=== PATIENT | female | born 1965 | race Caucasian/White ===

== ENCOUNTER 2016-05-07 13:42 | Emergency (ER) | payer OTHER, MEDICARE ==
[~2016-05-07] VITALS: Ht 167.6 cm; Wt 78.9 kg
[~2016-05-07 13:42] MED LIST: ALBUTEROL0.09 MG/A1 INH; BACTRIM DS 8001 TAB PO; BENZONATATE100 M1 PO; BENZTROPINE ME0.5 MG PO; CLEOCIN HCL300 MG PO; DEPAKOTE ER250 M1 PO; DIVALPROEX SOD500 M3 PO; DOXYCYCLINE HY100 M2 PO; FUROSEMIDE20 MG PO; GEODON40 MG PO; IBU600 MG PO; KEFLEX500 MG PO; LASIX20 M1 PO; LEVOXYL88 MCG PO; LITHIUM CARBON150 MG PO; LITHIUM CARBON300 M2 PO; MEDROL DOSEPAK1 PAC PO; MIRALAX17 G1 PO; MIRALAX17 GM PO; MYRBETRIQ25 M1 PO; NAPROXEN500 MG PO; NASONEX17 GM NASB; OXYBUTYNIN5 MG PO; PREDNISONE 20MG20 MG PO; PROPRANOLOL HCL10 M1 PO; PROPRANOLOL HY160 MG PO; PROTONIX40 M3 PO; PYRIDIUM100 MG PO; TESSALON PERLE100 MG PO; VIBRAMYCIN100 MG PO; ZIPRASIDONE HYD40 MG PO; ZITHROMAX Z-PA250 M1 PO; [UNRECOGNIZED DRUG - OTHER] PO
[2016-05-07] MEDS ORDERED: FLONASE ALLERG9.9 ML NAS (16:28)
[2016-05-07] MEDS ORDERED: TESSALON PERLE100 M1 PO (16:28)
--- NOTE | 2016-05-07 16:28 | ED GENERAL ADULT ---
History of Present Illness General Chief Complaint: General Adult Stated Complaint: CHEST COLD Source: patient Exam Limitations: no limitations Vital Signs & Intake/Output Vital Signs & Intake/Output Vital Signs Date Time Temp Pulse Resp B/P Pulse O2 O2 Flow FiO2 Ox Delivery Rate 05/07 1433 97.8 73 20 134/84 94 Room Air Allergies Coded Allergies: Penicillins (SICK TO STOMACH 10/02/15) buspirone (From BUSPAR) (GI UPSET, VOMITING 10/02/15) erythromycin base (HEART RACING, PALPITATIONS 10/02/15) imipramine (HEART RACING 10/02/15) lamotrigine (RASH ON BOTH ARMS 10/02/15) lithium (WITHDRAW, TREMORS, DROWSY, NAUSE, RACING THOUGHTS 10/02/15) paroxetine (VOMITING, NAUSEA 10/02/15) ranitidine (HEADACHES, NAUSEA, VOMITING 10/02/15) risperidone (RACING HEART BEAT 10/02/15) sertraline (CONSTANT HEADACHES, RACING THOUGHTS 10/02/15) Reconcile Medications Benztropine Mesylate 0.5 MG TAB 1 TAB PO DAILY MENTAL HEALTH (Reported) Divalproex Sodium (Divalproex Sodium ER) 250 MG TAB.ER.24H 1 TAB PO QAM MENTAL ILLNESS (Reported) Divalproex Sodium ER (Depakote ER 250MG Tab) 250 MG TAB.ER.24H 1,000 MG PO QHS MENTAL ILLNESS (Reported) Doxycycline Hyclate 100 MG CAPSULE 1 CAP PO BID URI Furosemide 20 MG TAB 1 TAB PO DAILY WATER PILL (Reported) Levothyroxine Sodium 0.088 MG TAB 1 TAB PO DAILY AC HYPOTHYROID (Reported) Mirabegron (Myrbetriq) 25 MG TAB.ER.24H 1 TAB PO DAILY BLADDER (Reported) Mometasone Furoate (Nasonex) 0.05 MG/Actuation SPR 1 SPRAY NASB PRN ALLERGIES (Reported) Pantoprazole Sodium (Protonix) 40 MG TABLET.DR 1 TAB PO QAM GERD (Reported) Polyethylene Glycol 3350 (Miralax) 17 GRAM/DOSE POWDER 17 GM PO PRN GI ( Reported) Propranolol Hydrochloride (Propranolol HCl) 10 MG TAB 1 TAB PO BID ANXIETY ( Reported) Ziprasidone Hydrochloride (Geodon 40MG Cap) 40 MG CAPSULE 1 CAP PO BID MENTAL HEALTH (Reported) Triage Note: C/O NASAL CONGESTION WITH COUGH X 1 MONTH. WITH SCRATCHY THROAT AND NASAL STUFFINESS. Triage Nurses Notes Reviewed? yes Onset: Gradual Duration: week(s): (4) Timing: recent history Injury Environment: home Severity: moderate Severity Numbers: 5 No Modifying Factors: none Associated Symptoms: cough HPI: Patient is a 50-year-old female presenting to the emergency department with chief complaint of dry cough and upper respiratory congestion that been going on for the past one month. She reports that she was using a nasal spray with little to no relief. Denies any fevers chills nausea vomiting chest pain or shortness of breath. She is still smoking every day. people she lives with her sick with similar symptoms. Past History Travel History Traveled to [place] past 21 day No Medical History Any Pertinent Medical History? 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 No Review of Systems Review of Systems Constitutional: Reports: no symptoms. Comments Review of systems: See HPI, All other systems negative. Constitutional, no chills fever or weight loss HEENT: No visual changes no sore throat no congestion Cardiovascular: No chest pain ,palpitation , orthopnea or ankle swelling Skin, no jaundice no rashes Respiratory: No dyspnea sputum or hemoptysis GI: No nausea no vomiting : No dysuria No hematuria Muscle skeletal: no back pain, no neck pain, Neurologic: No numbness no confusion Psych: No stress anxiety Immunology: No splenectomy or history of AIDS Physical Exam Physical Exam General Appearance: well developed/nourished, no apparent distress, alert, awake , comfortable Comments: Well-developed well-nourished person in no acute distress HEENT: Pupils equally round and reactive to light and accommodation. Nose is atraumatic. External auditory canal and Tympanic membranes clear. Pharynx normal. No swelling or edema. Slight dryness noted around nares. Clear nasal discharge bilaterally. No sinus tenderness to palpation over the maxillary and frontal sinuses. Neck: Supple, no lymphadenopathy, normal range of motion without pain or tenderness Cardiovascular: Regular rate and rhythms no murmurs rubs or gallops, normal JVP Respiratory: Chest nontender. No respiratory distress.breath sounds clear to auscultation bilaterally Extremity: No edema Neuro: Alert oriented x3 Skin: No appreciable rash on exposed skin, skin is warm and dry. Psych: Mood and affect is normal, memory and judgment is normal. Core Measures ACS in differential dx? No CVA/TIA Diagnosis: No Severe Sepsis Present: No Septic Shock Present: No Progress Differential Diagnoses I considered the following diagnoses in my evaluation of the patient: Upper respiratory infection, bronchitis, pneumonia, sinusitis Plan of Care: Patient is well-appearing in no acute distress. She was educated on smoking cessation. She will be started on Flonase, Tessalon Perles for symptoms. She' ll follow up with her primary care physician. Educated on using moisturizer to help with chapped skin. Initial ED EKG: none Departure Departure Time of Disposition: 1624 Disposition: HOME OR SELF CARE Condition: Stable Clinical Impression Primary Impression: Upper respiratory infection Qualifiers: URI type: unspecified URI Qualified Code: J06.9 - Acute upper respiratory infection, unspecified Referrals: BRUCE MCDERMOTT APRN (PCP/Family) Additional Instructions: Follow-up with her primary care physician calling appointment. Increase fluids. Use Flonase as prescribed. Take Tessalon Perles as prescribed for cough. Return for worsening symptoms or concerns. Quit smoking. Departure Forms: Customer Survey General Discharge Information Prescriptions: Current Visit Scripts Benzonatate (Tessalon Perle) 1 CAP PO TID PRN COUGH #21 CAP Fluticasone Propionate (Flonase Allergy Relief) 1 SPRAY KIRT BID PRN CONGESTION #1 INH Critical Care Note Critical Care Note Critical Care Time: non-applicable
[2016-05-07 16:56] VITALS: BP 136/88
== END 2016-05-07 16:57 ==
LOC: ERH 13:42
DX: J06.9 Acute upper respiratory infection, unspecified (principal)

== ENCOUNTER 2016-06-22 12:38 | Emergency (ER) | payer OTHER, MEDICARE ==
[~2016-06-22] VITALS: Ht 167.6 cm; Wt 78.9 kg
[~2016-06-22 12:38] MED LIST changes: +FLONASE ALLERG9.9 ML NAS; +TESSALON PERLE100 M1 PO
--- NOTE | 2016-06-22 13:25 | ED INFLUENZA/URI COMPLAINT ---
History of Present Illness General Chief Complaint: General Adult Stated Complaint: PT HAS A COLD FOR A FEW DAYS Source: patient Exam Limitations: no limitations Vital Signs & Intake/Output Vital Signs & Intake/Output Vital Signs Date Time Temp Pulse Resp B/P Pulse O2 O2 Flow FiO2 Ox Delivery Rate 06/22 1453 98.3 89 15 115/74 100 Room Air 06/22 1323 99 Room Air 06/22 1245 97.0 93 20 117/82 96 Room Air Allergies Coded Allergies: Penicillins (SICK TO STOMACH 10/02/15) buspirone (From BUSPAR) (GI UPSET, VOMITING 10/02/15) erythromycin base (HEART RACING, PALPITATIONS 10/02/15) imipramine (HEART RACING 10/02/15) lamotrigine (RASH ON BOTH ARMS 10/02/15) lithium (WITHDRAW, TREMORS, DROWSY, NAUSE, RACING THOUGHTS 10/02/15) paroxetine (VOMITING, NAUSEA 10/02/15) ranitidine (HEADACHES, NAUSEA, VOMITING 10/02/15) risperidone (RACING HEART BEAT 10/02/15) sertraline (CONSTANT HEADACHES, RACING THOUGHTS 10/02/15) Reconcile Medications Albuterol Sulfate (Proventil Hfa) 90 MCG HFA.AER.AD 2 PUF INH Q4 sob Benzonatate (Tessalon Perle) 100 MG CAPSULE 1 CAP PO TID PRN COUGH Benztropine Mesylate 0.5 MG TAB 1 TAB PO DAILY MENTAL HEALTH (Reported) Brompheniramine/Pseudoephed/Dm (Bromfed Dm Cough Syrup) 2 MG-30 MG-10 MG/5 ML SYRUP 5-10 ML PO Q4-6 PRN PRN cough Divalproex Sodium (Divalproex Sodium ER) 250 MG TAB.ER.24H 1 TAB PO QAM MENTAL ILLNESS (Reported) Divalproex Sodium ER (Depakote ER 250MG Tab) 250 MG TAB.ER.24H 1,000 MG PO QHS MENTAL ILLNESS (Reported) Doxycycline Hyclate 100 MG TABLET 1 TAB PO BID bronchitis Doxycycline Hyclate 100 MG CAPSULE 1 CAP PO BID URI Fluticasone Propionate (Flonase Allergy Relief) 50 MCG/ACTUATION SPRAY.SUSP 1 SPRAY KIRT BID PRN CONGESTION Furosemide 20 MG TAB 1 TAB PO DAILY WATER PILL (Reported) Levothyroxine Sodium 0.088 MG TAB 1 TAB PO DAILY AC HYPOTHYROID (Reported) Mirabegron (Myrbetriq) 25 MG TAB.ER.24H 1 TAB PO DAILY BLADDER (Reported) Mometasone Furoate (Nasonex) 0.05 MG/Actuation SPR 1 SPRAY NASB PRN ALLERGIES (Reported) Pantoprazole Sodium (Protonix) 40 MG TABLET.DR 1 TAB PO QAM GERD (Reported) Polyethylene Glycol 3350 (Miralax) 17 GRAM/DOSE POWDER 17 GM PO PRN GI ( Reported) Propranolol Hydrochloride (Propranolol HCl) 10 MG TAB 1 TAB PO BID ANXIETY ( Reported) Ziprasidone Hydrochloride (Geodon 40MG Cap) 40 MG CAPSULE 1 CAP PO BID MENTAL HEALTH (Reported) Triage Note: PT TO ED C/O URI S/S X A FEW DAYS. Triage Nurses Notes Reviewed? yes Onset: Abrupt Duration: week(s): (4), intermittent Timing: recent history No Modifying Factors: none HPI: 50 -year-old female comes into emergency room with complaints of cough runny nose and congestion. Patient also reports some mucus. Denies any fever. Denies any vomiting. Patient reports she was seen here prescribed medications and got better and then got worse again. Denies any pain. Denies any other associated symptoms. (SERVANDO RUDD) Past History Travel History Traveled to [place] past 21 day No Medical History Any Pertinent Medical History? 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 No (SERVANDO RUDD) Review of Systems Review of Systems Constitutional: Reports: no symptoms. EENTM: Reports: see HPI. Respiratory: Reports: see HPI. Cardiovascular: Reports: no symptoms. GI: Reports: no symptoms. Genitourinary: Reports: no symptoms. Musculoskeletal: Reports: no symptoms. Skin: Reports: no symptoms. Neurological/Psychological: Reports: no symptoms. Hematologic/Endocrine: Reports: no symptoms. Immunologic/Allergic: Reports: no symptoms. All Other Systems: Reviewed and Negative (SERVANDO RUDD) Physical Exam Physical Exam General Appearance: well developed/nourished, no apparent distress, alert, awake , anxious Head: atraumatic, normal appearance Eyes: Bilateral: normal appearance. Ears, Nose, Throat: normal ENT inspection, moist mucous membrane, hearing grossly normal Neck: normal inspection, full range of motion Respiratory: normal breath sounds, no respiratory distress Cardiovascular: regular rate/rhythm Back: normal inspection Extremities: normal inspection, normal range of motion Neurologic/Psych: awake, alert, oriented x 3, normal gait Skin: intact, normal color Core Measures Severe Sepsis Present: No Septic Shock Present: No (SERVANDO RUDD) Progress Differential Diagnosis: influenza, meningitis, neutropenia, otitis, pneumonia, pharyngitis, sinusitis, bronchitis Plan of Care: Orders Procedure Date/time Status XRY-CHEST XRAY, PA AND LATERAL 06/22 1324 Active Diagnostic Imaging: Viewed by Me: Radiology Read. Discussed w/RAD: Radiology Read. Radiology Impression: XAM TYPE: RAD - XRY-CHEST XRAY, PA AND LATERAL EXAMINATION : XR CHEST CLINICAL INFORMATION: Cough. COMPARISON: Chest radiography 2015. TECHNIQUE: 2 views of the chest were obtained. FINDINGS: No new significant abnormality is noted involving the heart, lungs, mediastinum, bony thorax or soft tissues. IMPRESSION: No acute pulmonary pathology. No significant interval change compared to prior radiography. DICTATED BY: ABEL KENNEDY MD Initial ED EKG: none Comments: 06/22/2016 2:54:13 PM Patient clinically looks well. Nontoxic-appearing. In no apparent distress. No evidence of pneumonia. Patient's symptoms go along with bronchitis. Patient counseled on stopping smoking. Take medications as prescribed. Follow-up with your primary care doctor. Return to emergency room if any concerns worsening symptoms. Patient reevaluated multiple times and continued to remain in no apparent distress. (SERVANDO RUDD) Departure Departure Disposition: HOME OR SELF CARE Condition: Stable Clinical Impression Primary Impression: Bronchitis Referrals: BRUCE MCDERMOTT APRN (PCP/Family) Additional Instructions: Take doxycycline, albuterol, and Bromfed as prescribed. Rest. Drink plenty fluids. Follow-up with your primary care doctor. You need to stop smoking. Please go over all results of today's visit with your primary care doctor. Contact your primary care doctor to let them know you were here in the emergency room. There may be nonspecific findings which may not be related to your visit today here in the emergency room but may require further evaluation and chronic monitoring by your primary care doctor. If you had a laceration today the chance of foreign body always remains. You should follow-up with your primary care doctor for recheck in 3-5 days for a wound check. If you had an x-ray done there is a chance that a fracture could have been missed on initial read and you should follow-up with your primary care doctor for repeat x-rays if symptoms persist. If your blood pressure was elevated here in the emergency room please have rechecked by her primary care doctor within the next 48 hours by your primary care doctor. If you were prescribed a narcotic here in the emergency room or any type of controlled substances you're not allowed to drive while taking this medication or operate any type of heavy machinery. Narcotics can make you feel lightheaded dizziness nausea and can cause constipation. You may need to pickler helper a stool softener. Thank you for choosing [facility] emergency room. Please return to the emergency room immediately if you have any other concerns worsening of symptoms. Departure Forms: Customer Survey General Discharge Information Prescriptions: Current Visit Scripts Doxycycline Hyclate 1 TAB PO BID #20 TAB Brompheniramine/Pseudoephed/Dm (Bromfed Dm Cough Syrup) 5-10 ML PO Q4-6 PRN PRN cough #120 ML Albuterol Sulfate (Proventil Hfa) 2 PUF INH Q4 #1 INHAL (SERVANDO RUDD) PA/HEAD ORTHOPEDIC TEAM PHYSICIAN Co-Sign Statement Statement: ED Attending supervision documentation- [] I saw and evaluated the patient. I have also reviewed all the pertinent lab results and diagnostic results. I agree with the findings and the plan of care as documented in the PA's/HEAD ORTHOPEDIC TEAM PHYSICIAN's documentation. x I have reviewed the ED Record and agree with the PA's/HEAD ORTHOPEDIC TEAM PHYSICIAN's documentation. [] Additions or exceptions (if any) to the PAs/HEAD ORTHOPEDIC TEAM PHYSICIAN's note and plan are summarized below: [] (JULIUS HARRY,VALERIE)
[2016-06-22] MEDS ORDERED: DOXYCYCLINE HY100 M4 PO (13:53)
[2016-06-22] MEDS ORDERED: PROVENTIL HFA6.7 GM INH (13:53)
[2016-06-22] MEDS ORDERED: BROMFED DM COU118 M1 PO (13:53)
--- NOTE | 2016-06-22 14:31 | RADIOLOGY REPORT ---
EXAMINATION: XR CHEST CLINICAL INFORMATION: Cough. COMPARISON: Chest radiography 05/02/2015. TECHNIQUE: 2 views of the chest were obtained. FINDINGS: No new significant abnormality is noted involving the heart, lungs, mediastinum, bony thorax or soft tissues. IMPRESSION: No acute pulmonary pathology. No significant interval change compared to prior radiography.
[2016-06-22 14:53] VITALS: BP 115/74
== END 2016-06-22 14:54 ==
LOC: ERH 12:38
DX: J40 Bronchitis, not specified as acute or chronic (principal); Z87.891 Personal history of nicotine dependence

== ENCOUNTER 2016-07-29 11:17 | Inpatient (IN) | payer OTHER, MEDICARE ==
[~2016-07-29] VITALS: Ht 167.6 cm; Wt 78.9 kg
[~2016-07-29 11:17] MED LIST changes: +BROMFED DM COU118 M1 PO; +DOXYCYCLINE HY100 M4 PO; +PROVENTIL HFA6.7 GM INH
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
--- NOTE | 2016-07-29 12:08 | NUR ---
PT AMBULATORY TO ROOM # 20, CALM AND COOPERATIVE, SECURITY CALLED FOR WANDING. MOTHER REMAINS AT BEDSIDE AND WILL TAKE VALUABLES.
--- NOTE | 2016-07-29 12:10 | NUR ---
STUDENT PA IN TO EVAL.
--- NOTE | 2016-07-29 12:19 | NUR ---
SECURITY IN FOR WANDING, PT CHANGED TO HOSP SCRUBS.
--- NOTE | 2016-07-29 12:25 | NUR ---
2 CLOTHING BAGS TO CLOSET BY SECURITY, VALUABLES GIVEN TO MOTHER.
--- NOTE | 2016-07-29 12:38 | NUR ---
EKG AND BLOODWORK SENT TO LAB BY JORGE [facility]. PT REMAINS AWAKE, ALERT, ORIENTED, COOPERATIVE, TALKATIVE.
[2016-07-29 12:40] LABS: ABSOLUTE BASOPHIL COUNT 0 /CUMM (0.0-0.2); ABSOLUTE EOSINOPHIL COUNT 0.1 /CUMM (0.0-0.7); ABSOLUTE GRANULOCYTE CT 4.9 /CUMM (1.4-6.5); ABSOLUTE LYMPH COUNT 1.9 /CUMM (1.2-3.4); ABSOLUTE MONOCYTE COUNT 0.9 /CUMM (0.10-0.60); BASOPHIL % 0.1 % (0.0-2.0); EOSINOPHIL % 1.2 % (0-5); GRANULOCYTE % 62.5 % (42.2-75.2); HEMATOCRIT 39.7 % (37-47); MEAN CORPUSCULAR HGB 33.8 PG (27.0-31.0); MEAN CORPUSCULAR HGB CONC 35.1 G/DL (33.0-37.0); MEAN CORPUSCULAR VOLUME 96.2 FL (81.0-99.0); MEAN PLATELET VOLUME 8.1 FL (7.4-10.4); PLATELET COUNT 249 /CUMM (130-400); RBC DISTRIBUTION WIDTH 13.9 % (11.5-14.5); RED BLOOD CELL CT 4.13 /CUMM (4.20-5.40); WHITE BLOOD CELL COUNT 7.8 /CUMM (4.8-10.8)
--- NOTE | 2016-07-29 13:00 | NUR ---
PT AWARE OF NEED FOR URINE SPECIMEN WHEN ABLE TO PROVIDE, URINE CUP AT BEDSIDE. MOTHER REMAINS AT BEDSIDE.
--- NOTE | 2016-07-29 14:24 | NUR ---
PT SLEEPING COMFORTABLY AT THIS TIME. MOTHER REMAINS AT BEDSIDE.
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
--- NOTE | 2016-07-29 15:13 | NUR ---
PT SITTING UP HAVING LUNCH TRAY AT THIS TIME.
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
--- NOTE | 2016-07-29 16:20 | NUR ---
CRISIS AT BEDSIDE FOR EVAL. MOTHER REMAINS AT BEDSIDE.
--- NOTE | 2016-07-29 16:26 | NUR ---
PA AT BEDSIDE TO DISCUSS PLAN OF CARE.
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
--- NOTE | 2016-07-29 16:35 | NUR ---
PER CRISIS PLAN FOR ADMIT TO CPS.
--- NOTE | 2016-07-29 17:23 | NUR ---
PT MORE TALKATIVE THIS AFTERNOON, TALKING ALMOST NON-STOP TO MOTHER ABOUT MULTIPLE PEOPLE AND THINGS THAT HAVE HAPPENED IN THE PAST. RESTING MORE QUIETLY NAPPING AT THIS TIME. MOTHER REMAINS AT BEDSIDE.
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
--- NOTE | 2016-07-29 17:45 | NUR ---
PT CONTINUES TO SLEEP COMFORTABLY AT THIS TIME, MOTHER REMAINS AT BEDSIDE.
--- NOTE | 2016-07-29 17:49 | NUR ---
SUPPER GIVEN, GRILLED CHEESE, SOUP,JUICE, MILK.
[2016-07-29] MEDS ORDERED: PROAIR HFA8.5 GM INH (18:20)
--- NOTE | 2016-07-29 18:48 | NUR ---
ATTEMPT TO GIVE [facility] REPORT, UNABLE TO TAKE AT THIS TIME.
--- NOTE | 2016-07-29 18:51 | NUR ---
PT AWAKE, ALERT, REMAINS TALKATIVE WITH MOTHER AT THIS TIME. PT UPDATED WITH PLAN OF CARE.
--- NOTE | 2016-07-29 19:17 | NUR ---
ASSUMED CARE OF PT. RACK WASHER IN TALKING TO PT AND PT MOTHER.
--- NOTE | 2016-07-29 20:16 | NUR ---
PER CRISIS [facility] NOT TAKING NURSING REPORT AT THIS TIME.
--- NOTE | 2016-07-29 20:58 | NUR ---
PT ON PHONE IN ROOM WITH MOTHER AT THIS TIME. RESTING COMFORTABLY ON STRETCHER. AWAITING GIVING REPORT TO [facility] AT THIS TIME.
--- NOTE | 2016-07-29 21:05 | NUR ---
REPORT GIVEN TO KAREL SARMIENTO
[2016-07-29 21:32] VITALS: BP 145/81
--- NOTE | 2016-07-29 23:15 | NUR ---
PT ADMITTED TO [facility] DUE TO DECOMPENSATION IN MENTAL STATUS. PT DIAGNOSED WITH BIPOLAR D/O AND HAS BEEN EXHIBITING AN INCREASE IN MOOD LABILITY AND SYMPTOMS OF PSYCHOSIS. PT ADMITTED TO PARANOID THOUGHTS AND NON COMMAND TYPE AH. SHE DENIED SI PAST OR PRESENT, VH, AND HI. PT A&O TO PERSON, PLACE, AND SITUATION. HOWEVER, DISORIENTED TO TIME OF DAY. PT REPORTED FEELING DEPRESSED AND ANXIOUS WITH RACING THOUGHTS. SHE WAS TANGENTIAL/HYPERVERBAL DURING INTERVIEW WITH A FOCUS ON NEGATIVE PAST EXPEREINCES. BEHAVIOR PLEASANT AND COOPERATIVE.
[2016-07-30 07:56] VITALS: BP 142/93
--- NOTE | 2016-07-30 10:03 | History & Physical ---
General Information and HPI MD Statement: I have seen and personally examined NATHEN BERNAL and documented this H&P. The patient is a 50 year old F who presented with a patient stated chief complaint of hellen Source of Information: patient Exam Limitations: no limitations History of Present Illness: 58-year-old female with past medical history significant for bipolar disease, hypothyroidism, GERD, bladder incontinence who was admitted to Inpatient Psychiatry secondary to having a manic episode. Patient was talking excessively. She smokes and was slumped over a garbage can with a significant amount. She had also noted that stools on the gas on. When she came in she made the statement that it's a miracle that we are alive. Patient thinks that her Depakote is getting shakes. She thinks that she is not to large dose of Depakote. She currently denies any drinking alcohol or any drug use but she is a current smoker. She smokes about a pack of cigarettes a day. At this point she does complain of some right upper quadrant pain. She does complain of some urinary burning. She has a history of urinary incontinence and she takes Mybetriq. She denies any nausea, vomiting, chest pain, and dizziness. She denies any coughing, shortness of breath, fevers or chills. Allergies/Medications Allergies: Coded Allergies: Penicillins (SICK TO STOMACH 10/02/15) buspirone (From BUSPAR) (GI UPSET, VOMITING 10/02/15) erythromycin base (HEART RACING, PALPITATIONS 10/02/15) imipramine (HEART RACING 10/02/15) lamotrigine (RASH ON BOTH ARMS 10/02/15) lithium (WITHDRAW, TREMORS, DROWSY, NAUSE, RACING THOUGHTS 10/02/15) paroxetine (VOMITING, NAUSEA 10/02/15) ranitidine (HEADACHES, NAUSEA, VOMITING 10/02/15) risperidone (RACING HEART BEAT 10/02/15) sertraline (CONSTANT HEADACHES, RACING THOUGHTS 10/02/15) Home Med list Divalproex Sodium (Divalproex Sodium ER) 500 MG TAB.ER.24H 500 MG PO QAM MENTAL HEALTH (Reported) Divalproex Sodium (Depakote ER) 250 MG TAB.ER.24H 750 MG PO QPM MENTAL HEALTH (Reported) Levothyroxine Sodium (Levoxyl) 88 MCG TABLET 1 TAB PO DAILY AC THYROID ( Reported) Mirabegron (Myrbetriq) 25 MG TAB.ER.24H 25 MG PO DAILY BLADDER (Reported) Mometasone Furoate (Nasonex) 50 MCG SPRAY.PUMP 1 SPRAY NASB PRN ALLERGIES ( Reported) Pantoprazole Sodium (Protonix) 40 MG TABLET.DR 1 TAB PO QAM GI (Reported) Polyethylene Glycol 3350 (Miralax) 17 GRAM POWD.PACK 1 PAC PO PRN GI ( Reported) dissolve in water Propranolol HCl 10 MG TABLET 1 TAB PO BID ANXIETY (Reported) Ziprasidone HCl (Geodon) 40 MG CAPSULE 1 CAP PO BID MENTAL HEALTH (Reported) Past History Travel History Traveled to [place] past 21 day No Medical History Neurological: NONE EENT: allergies Cardiovascular: NONE Respiratory: COPD Gastrointestinal: constipation, diverticulitis, hiatal hernia, BOWEL INCONTINENCE Hepatic: NONE Renal: HX BLADDER INCONTINENCE OVERACTIVE BLADDER Musculoskeletal: osteoarthritis Psychiatric: anxiety, bipolar disease, depression, MOOD SWINGS Endocrine: hypothyroidism Blood Disorders: anemia Cancer(s): NONE DELI 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 Home Services at Home: None Primary Language: Polish Functional Ability ADLs Independent: dressing, eating, toileting, bathing. Ambulation: independent IADLs Independent: shopping, housework, finances, food prep, telephone, transportation , medication admin. Employment History Employment Disability Review of Systems Review of Systems Constitutional: Reports: see HPI. EENTM: Reports: see HPI. Cardiovascular: Reports: see HPI. Respiratory: Reports: see HPI. GI: Reports: see HPI. Genitourinary: Reports: see HPI. Musculoskeletal: Reports: see HPI. Skin: Reports: see HPI. Neurological/Psychological: Reports: see HPI. Exam & Diagnostic Data Last 24 Hrs of Vital Signs/I&O Vital Signs Date Time Temp Pulse Resp B/P B/P Pulse O2 O2 Flow FiO2 Mean Ox Delivery Rate 07/30 0839 96.8 77 20 142/93 07/30 0756 96.8 77 142/93 07/29 2235 79 145/81 07/29 2132 96.7 79 145/81 07/29 1931 97.8 78 20 148/93 97 Room Air 07/29 1534 78 19 119/72 98 Room Air 07/29 1130 98.0 84 16 150/91 95 Room Air Intake & Output 07/30 1600 07/30 0800 07/30 0000 Intake Total Output Total Balance Patient 174 lb Weight Physical Exam General Appearance Alert, Oriented X3, Cooperative, No Acute Distress, talking too much Skin No Rashes HEENT PERRLA Neck Supple Cardiovascular Regular Rate, Normal S1, Normal S2 Lungs Clear to Auscultation Abdomen Normal Bowel Sounds, Soft, + TENDERNESS IN RUQ. Neurological Cranial Nerves II through XII: INTACT Extremities No Edema Last 24 Hrs of Labs/Samir: Laboratory Tests 07/30/16 0622: Anion Gap 10 07/29/16 1756: Urine Test Cancelled 07/29/16 1753: Urine Test Cancelled 07/29/16 1444: Urine Opiates Screen < 100.00, Methadone Screen < 40, Barbiturate Screen < 60, Ur Phencyclidine Scrn < 6.00, Amphetamines Screen < 100, U Benzodiazepines Scrn < 85, Urine Cocaine Screen < 50, Urine Cannabis Screen < 5.00, Urine Test NEGATIVE 07/29/16 1234: Hemoglobin A1c Pending 07/29/16 1234: Anion Gap 8, Estimated GFR > 60, BUN/Creatinine Ratio 10.0, Glucose 75, Calcium 9.5, Total Bilirubin 0.4, AST 18, ALT 34, Alkaline Phosphatase 60, Troponin I < 0.01, Total Protein 6.5, Albumin 3.9, Globulin 2.6, Albumin/Globulin Ratio 1.5, TSH &T3 &Free T4 Intrp 2.880, Valproic Acid 85.3, Serum Alcohol < 10.0 07/29/16 1234: Sodium Cancelled, Potassium Cancelled, Chloride Cancelled, Carbon Dioxide Cancelled, Anion Gap Cancelled, BUN Cancelled, Creatinine Cancelled, BUN/ Creatinine Ratio Cancelled, Glucose Cancelled, Calcium Cancelled, Total Bilirubin Cancelled, AST Cancelled, ALT Cancelled, Alkaline Phosphatase Cancelled, Troponin I Cancelled, Total Protein Cancelled, Albumin Cancelled, Globulin Cancelled, Albumin/Globulin Ratio Cancelled, CBC w Diff NO MAN DIFF REQ , RBC 4.13 L, MCV 96.2, MCH 33.8 H, RDW 13.9, MPV 8.1, Gran % 62.5, Lymphocytes % 24.9, Monocytes % 11.3 H, Eosinophils % 1.2, Basophils % 0.1, Absolute Granulocytes 4.9, Absolute Lymphocytes 1.9, Absolute Monocytes 0.9 H, Absolute Eosinophils 0.1, Absolute Basophils 0, PUBS MCHC 35.1, Serum Alcohol Cancelled Microbiology 07/30 0934 URINE ROUT: Urine Culture - ORD Assessment/Plan Assessment: 58-year-old female with past medical history significant for bipolar disorder, hypothyroidism, GERD and urinary incontinence who is admitted today that bipolar 1 disorder with hellen and psychotic features. She also has right upper quadrant pain and tenderness as well as urinary burning complaint. She is slightly hyperkalemic. Hypothyroidism, her TSH is normal. I will continue her on her home dose of Synthroid. She should be continued on her B check for urinary incontinence. I continued the PPI for her GERD. She is complaining of some urinary burning, I did order a urinalysis and urine culture. She is also complaining of right upper quadrant pain and she's tender on palpation. Will check right upper quadrant ultrasound. For psych issues, I will defer the treatment plan to psychiatrist. I will recheck her labs in am. As Ranked By This Provider Problem List: 1. Bipolar disorder 2. Hypothyroid 3. GERD (gastroesophageal reflux disease) 4. Urinary incontinence Miscellaneous Miscellaneous Documentation Attending Case Discussed With: Kristen Henry MD. Primary Care Physician: BRUCE MCDERMOTT APRN Patient sees these Specialists Psychiatry Level of Patient Care: [facility]
[2016-07-30 12:23] VITALS: BP 122/92
--- NOTE | 2016-07-30 13:09 | NUR ---
PT IS OUT IN THE COMMUNITY INTERACTING WITH STAFF AND PEERS AT TIMES. PT SPEECH IS HYPERVERBAL AND DISORANZIED AT TIMES. PT TENDS TO TALK ABOUT THINGS THAT WERE NOT ASKED DIRECTLY OF HER. PT MOOD IS STABLE WTIH A CONSTRICTED AFFECT. PT IS ATTENDING GROUPS. PT DENIES SI THOUGHTS.
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
[2016-07-30 15:52] VITALS: BP 136/92
--- NOTE | 2016-07-30 16:06 | SOCIAL WORKER TX PLAN PSYCH ---
Treatment Plan - Please Document: - Evidence that there is ongoing collaboration between - the patient and the interdisciplinary team, - including the patient's active participation and - responsibility for engaging in the treatment regimen, - and that the treatment plan is individualized and - relevant to the patient's conditions. - Treatment plan should reflect documentation indicating - that all active therapeutic efforts are included. Strengths/Capabilities: Pt is able to articulate her wants and needs. Pt is connected to treatment. Pt has been sober from drug and alcohol use for years. Physical Limitations (Interventions): None identified. DSM5/PS Stressors/Medical Prob Diagnosis' (DSM 5, Stressors, Medical): Bipolar 1 with hellen and psychotic features F F31.2 PTSD Chronic F43.12 Current GAF: 27 Treatment Team - Responsibilities of members of the treatment team include: - Medication Management- MD or RN CAMP - Medication Administration and Monitoring- Nurse - Group Therapy- Occupational Therapist - 1:1 Therapy,Disch Planning,family involvement-Smoking Tobacco Packing Machine Hand
--- NOTE | 2016-07-30 16:06 | SOCIAL WORKER PROG NOTE PSYCH ---
Social Work Progress Note Progress Note Eliana from [facility] left a message asking to come and see Kasie today as well as speak with me at some point regarding concerns over Kasie's living arrangement and concerns from Kasie's son Chandu. Kasie was agreeable to sign a release for [facility]. I called Eliana but needed to leave a message. Eliana left me another message later in the day, stating she visited with Kasie for awhile on the unit. I happened to be in a family meeting at that time. She again reiterated that she would like to set up a meeting next week with Kasie's son Chandu. She is thinking that respite may be a good option for Kasie right now. Kasie had an ultrasound of her abdominal area today. She is complaining of constipation and pain. She is scared of what they may tell her. She is hyperverbal today, rambling on from topic to topic. We didn't get to spend alot of time together and her Mom came to visit her at 4pm when we were talking. I told Kasie we will set up a family meeting and or meeting with Eliana for next week and that we will talk more on Tuesday.
--- NOTE | 2016-07-30 16:57 | ULTRASOUND REPORT ---
EXAMINATION: US ABDOMEN LIMITED CLINICAL INFORMATION: Right upper quadrant abdominal pain.. COMPARISON: None TECHNIQUE: Real-time imaging of the right upper quadrant abdominal viscera. FINDINGS: PANCREAS: The tail of the pancreas is not visualized. The remainder of the pancreas appear unremarkable. LIVER: Mild diffuse heterogeneous abnormal increased echotexture is present consistent with mild diffuse hepatocellular disease or fatty infiltration. No superimposed discrete focal abnormalities present. GALLBLADDER: The gallbladder is contracted, accordingly suboptimally evaluated. No gross abnormality is seen. COMMON BILE DUCT: Normal in caliber measuring 0.3 cm in diameter. RIGHT KIDNEY: Normal. No hydronephrosis. No renal calculi or focal parenchymal lesions. The kidney measures 10.1 cm in maximum dimension. FREE FLUID: None. IMPRESSION: 1. The gallbladder is contracted, suboptimally evaluated. 2. Mild diffuse heterogeneous abnormal increased echotexture throughout the liver, consistent with diffuse liver disease likely secondary to diffuse hepatocellular disease or fatty infiltration.
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
[2016-07-30 20:19] VITALS: BP 129/81
--- NOTE | 2016-07-30 21:29 | NUR ---
PT IS HYPERVERBAL AND EXPRESSES THOUGHTS TO STAFF AND TO OTHER PTS. CAN SOMETIMES BE ANNOYING AND INTRUSIVE. OVERALL COMPLIANT AND NO BIG ISSUES. PT DENIES ANY THOUGHTS OF SI AT THIS TIME.
[2016-07-31 07:58] VITALS: BP 124/84
--- NOTE | 2016-07-31 12:04 | NUR ---
PT IS MONITORED ON ONE TO ONE STATUS. SHE HAS BEEN HYPERVERBAL BUT ABLE TO BE REDIRECTED AND SHE HAS NOT BEEN INAPPROPRIATE IN HER CONVERSATION OR BEHAVIOR. WHEN ASKED SHE DENIED ANY SUICIDAL THOUGHTS OF THOUGHTS OF SELF HARM. SHE IS COMPLIANT WITH HER MED REGIME.
[2016-07-31 12:24] VITALS: BP 165/94
--- NOTE | 2016-07-31 12:51 | CP SOUTH PROGRESS NOTE PSYCH ---
Psych (Inpt) Progress Note Progress Note Include the following elements, when applicable: Involvement in the active treatment of the patient with behavioral observations of the patient and the patient's response to the treatment. Review of the ongoing treatment process in the context of the treatment plan. Indication of how multi-disciplinary staff members are carrying out the treatment plan. Plans for future interventions and recommendations for revision of the treatment plan. Liaison with other physicians/providers. Progress Note: Pressured speech, difficult to interrupt at times, but pleasant. Asking me if I am someone elses sister, then went on in disorganized tangent about I keep doing good but watch out for danger, bad dreams keep haunting me, someone is going to strike me in the wrong place at the wrong time Discussed her past relapses, stating that she was smoking 3 packs a day, I felt like I was going under, I was supposed to be on 1500mg of depakote) stated that she felt safe here, agreeable to increase her depakote dosing. MSE: older woman, fair hygiene and grooming. Appropriate eye contact. Psychomotor agitation. Affect full, euphoric overall and overall reactive, mood euphotic. Speech pressured. Thought content positive disorganized, odd statements, global paranoia. Thought process off topic, derailed. Denied voices initially then started talking about the voices as nightmares. No command hallucinations. Denied thoughts to harm herself/others. Absent insight to her current circumstances. Judgment fair. Cognition impaired by her active psychotic./manic sx. A: 50 y/o woman w/ active manic and psychotic sx, hx bipolar d/o, disorganized, off topic. Had been pressured w/ sexually preoccupied speech, grandiose earlier this week. Less labile today compared to previous notes. Risk: Hx significant psychiatric sx, significant medical problems (obesity) which elevate his chronic risk of harm to self/others. Recent suicidal thoughts, depression as more acute risk factors; but overall acute risk of violence to self/others is low b/c stabilizing, denies SI; participating in tx. P: Target risk factors/active sx (manic sx) w/ medication, education, milieu therapy; groups. Encouraged group attendance. Increase VPA to 500mg qam and 1000mg qpm She has been doing better overall, will try taking her off of 1:1, she has been amenable to redirection by staff.
[2016-07-31 16:24] VITALS: BP 144/90
[2016-07-31 19:42] VITALS: BP 131/77
--- NOTE | 2016-07-31 20:52 | NUR ---
PT IS COOPERATIVE WITH STAFF AND PEERS, AND COMPLINAT WITH UNIT RULES. OFTEN INTERACTING WITH OTHERS, AND STAYING IN [place]. MOOD IS STABLE, AFFECT IS BRIGH, COMMUNICATION IS HYPERVERBAL, TANGENTIAL, SLIGHTLY LOUD AND PRESSURED, APPETITE IS NORMAL. PT DENIES SI AT THIS TIME.
--- NOTE | 2016-08-01 05:23 | NUR ---
PT NO LONGER ON 1:1. PT TALKING TO SELF NON STOP ON EVENINGS. PT DID TAKE MEDS. PT DID SLEEP.
[2016-08-01 07:41] VITALS: BP 123/76
--- NOTE | 2016-08-01 11:51 | NUR ---
PT HAS BEEN CALM AND COOPERATIVE THROUGHOUT THIS SHIFT. SHE IS HYPERVERBAL AND TANGENTIAL BUT ABLE TO BE REDIRECTED. WHEN ASKED SHE DENIED ANY SUICIDAL THOUGHTS OR THOUGHTS OF SELF HARM. SHE IS TAKING HER MEDS AND GOING TO GROUPS
[2016-08-01 12:01] VITALS: BP 132/78
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
[2016-08-01 15:57] VITALS: BP 135/91
--- NOTE | 2016-08-01 16:46 | NUR ---
Pt is A&O X 3, compliant with medication and group therapies. Pt continues with her compulsive talking that is most often intolerable and a source of aggravation to other peers necessitating some form of social distancing/ isolation by other patients. vital sign is stable, report good night sleep and appetite. mood is stable with full range affect, denies any AH/VH, thought of self-harm and to someone else.
[2016-08-01 19:58] VITALS: BP 147/86
--- NOTE | 2016-08-01 20:50 | NUR ---
PT IS COOPERATIVE WITH STAFF AND PEERS, AND COMPLIANT WITH UNIT RULES. OFTEN IN MILIEU, INTERACTING WITH OTHERS. MOOD IS STABLE, AFFECT IS BRIGHT, COMMUNICATION IS HYPERVERBAL, SOMETIMES LOUD AND PRESSURED, AT TIMES DISCUSSES TOPICS THAT ARE NOT APPROPRIATE FOR THE UNIT, BUT IS EASILY RE-DIRECTED, AND APPETITE IS NORMAL. PT DENIES SI AT THIS TIME.
--- NOTE | 2016-08-02 06:54 | NUR ---
PT CALMER. PT SLEPT THRU THE NIGHT. LABS IN AM.
[2016-08-02 08:13] VITALS: BP 110/77
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
--- NOTE | 2016-08-02 10:46 | CP SOUTH PROGRESS NOTE PSYCH ---
Psych (Inpt) Progress Note Progress Note Include the following elements, when applicable: Involvement in the active treatment of the patient with behavioral observations of the patient and the patient's response to the treatment. Review of the ongoing treatment process in the context of the treatment plan. Indication of how multi-disciplinary staff members are carrying out the treatment plan. Plans for future interventions and recommendations for revision of the treatment plan. Liaison with other physicians/providers. Progress Note: I discussed this patient's progress to date, current mental status, treatment process in the context of the treatment plan, and discharge planning with staff/ team in the daily morning inpatient team meeting. I also met with the patient myself in individual session. A total of 15 minutes was spent with the patient with more than 50% spent in counseling and/or coordination of care. SUBJECTIVE: "The voices only happen when I drink. Now they've disappeared. Sometimes I get prayers over me, telling me not to do dangerous things." OBJECTIVE: Current Medications Sig/Saurabh Start time Last Medication Dose Route Stop Time Status Admin Acetaminophen 650 MG Q6P PRN 07/29 1745 AC PO Al Hydroxide/Mg 30 ML Q4-6 PRN PRN 07/29 1800 AC Hydroxide PO Albuterol Sulfate 2 PUF Q6P PRN 07/29 174 AC INH Divalproex Sodium 750 MG 08/02 2000 AC PO Divalproex Sodium 1,000 MG AT BEDTIME 07/31 220 DC 08/01 PO 2155 Divalproex Sodium 500 MG DAILY@07/30 08 AC 08/02 PO 0903 Fluticasone 1 SPRAY 7:30 AM, & 4:30 PM 08/02 0730 AC 08/02 Propionate KIRT 0831 Gabapentin 300 MG Q4P PRN 07/29 1800 AC PO Levothyroxine Sodium 0.088 MG DAILY AC 07/30 07 AC 08/02 PO 0636 Magnesium Hydroxide 30 ML AT BEDTIME PRN 07/29 1800 AC PO Mirabegron 25 MG 07/30 08 AC 08/02 PO 0831 Nicotine 14 MG DAILY 07/30 1710 AC 08/02 TOP 0834 Omeprazole 40 MG DAILY AC 07/31 0700 AC 08/02 PO 0636 Polyethylene Glycol 17 GM DAILY 07/30 1000 AC 08/02 PO 0903 Propranolol HCl 10 MG BID 07/29 2200 AC 08/02 PO 0831 Ziprasidone 60 MG 0800,1700 08/02 1700 UNVr PO Ziprasidone 40 MG 1/2H B/BREAKF/DINNER 07/30 0700 DC 08/02 PO 0636 Laboratory Tests 08/02 0738 Toxicology Valproic Acid (50 - 120 ug/mL) 113.3 Vital Signs Date Time Temp Pulse Resp B/P B/P Pulse O2 O2 Flow FiO2 Mean Ox Delivery Rate 08/02 830 70 110/77 08/02 0813 96.6 70 110/77 08/01 2154 96.7 80 20 147/86 08/01 1958 96.7 80 147/86 08/01 1557 73 135/91 08/01 1201 60 132/78 ASSESSMENT: As per nursing report, patient continues to be hyperverbal and intrusive. During our conversation this morning, she was pleasant, cooperative, and hyperverbal. Patient states that she enjoys participating in group, however report from staff is that during group she is hyperverbal and tends to try to take over the group conversation. Depression:5/10; Anxiety:2/10 (with 10 the worst.) States that she is not usually anxious, but feels a little anxiety because she is "not home. Things will get better" Denies suicidal ideation, homicidal ideation, auditory hallucinations, visual hallucinations, paranoid ideation. Patient denies having auditory hallucinations, however continues to report sometimes hearing the voice of "the Lord" telling her not to do "dangerous things." Speech is well articulated, at times goal directed and at times tangential, average in rate, volume and tone. She reports sleeping well at night. States her appetite is good. The patient understands the risks/benefits/side effects of the medication and is agreeable to continue taking them. PLAN: Decrease evening dose of Depakote, as this morning's valproic acid level was on the high side of normal. Increase Geodon for continuing hypomanic/manic behavior. Continue with current management as patient is improving. Continue to provide support and encouragement.
--- NOTE | 2016-08-02 11:44 | NUR ---
PT STATED HER GOAL WAS TO "NOT LET THINGS GET TO HER" SHE IS ATTENDING GROUPS AND TAKING HER MEDS. SHE IS LESS TALKATIVE TODAY AND MORE APPROPRIATE IN HER CONVERSATION. SHE IS CALM AND COOPERATIVE AND WHEN ASKED SHE DENIED ANY SUICIDAL THOUGHTS
[2016-08-02 12:43] VITALS: BP 128/93
[2016-08-02 15:50] VITALS: BP 127/82
[2016-08-02 20:07] VITALS: BP 159/96
--- NOTE | 2016-08-03 04:52 | NUR ---
Slept well, no complaints offered.
[2016-08-03 07:48] VITALS: BP 118/69
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
[2016-08-03 12:39] VITALS: BP 96/73
--- NOTE | 2016-08-03 13:11 | NUR ---
PT IS COMPLIANT AND COOPERATIVE WITH UNIT RULES. PT IS OUT IN COMMUNTIY INTERACTING WITH STAFF AND PEERS. PT IS ACTIVE IN GROUPS. PT SPEECH CAN BE RAPID AT TIMES AND NEEDS REDIRECTION AWAY FROM TAKING FOR LONG PERIODS OF TIME. PT MOOD IS STABLE WITH A FULL RANGE AFFECT. PT DENIES SI THOUGHTS.
[2016-08-03 15:52] VITALS: BP 128/71
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
[2016-08-03 20:35] VITALS: BP 142/90
--- NOTE | 2016-08-03 22:22 | NUR ---
PATIENT ALERT AND ORIENTED X3; OVERALL PATIENT MOOD IMPROVED; SPEECH STILL HYPERVERBAL AND PRESSURED, SLIGHTLY INTRUSIVE AT TIMES; PATIENT DENIES S/I, H/I, A/H, AND V/H; BEHAVIOR BOUNDARIES SLIGHTLY BETTER; PATIENT ATTENDED GROUPS AND PARTICIPATED BETTER, ONLY NEEDING TO BE REDIRECTED A LITTLE BIT; VITAL SIGNS WNL.
[2016-08-04 07:41] VITALS: BP 103/69
[2016-08-04 12:41] VITALS: BP 118/83
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
--- NOTE | 2016-08-04 13:40 | NUR ---
PT IS COMPLIANT AND COOPERATIVE. MOOD IS STABLE WITH A FULL RANGE OF AFFECT. PT DENIES SI AT THIS TIME, NO COMPLAINTS OFFERED. PT REMAINS HYPERVERBAL, TANGENTIAL AND DIFFICULT TO REDIRECT. PT IS PRESENT IN THE COMMUNITY AND INTERACTING WELL WITH PEERS AND STAFF. PT IS ATTENDING GROUPS. VITALS ARE STABLE, APPETITE IS GOOD.
[2016-08-04 16:11] VITALS: BP 117/89
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
[2016-08-04 20:04] VITALS: BP 138/79
--- NOTE | 2016-08-04 21:24 | NUR ---
PT IS VISIBLE ON UNIT, SOCIALIZING WITH PEERS AND VISITING WITH MOTHER IN KITCHEN. PLEASANT AND COOPERATIVE WITH STAFF. AT TIMES PT IS HYPERVERBAL BUT RESPONDS WELL TO REDIRECTION. ATTENDED WRAP UP MEETING. NO COMPLAINTS OR SI REPORTED. PT HAS A STABLE MOOD AND FULL RANGE AFFECT.
--- NOTE | 2016-08-05 06:10 | NUR ---
PT CALMER, THOUGH STILL HYPERVERBAL. PT SLEPT.
[2016-08-05 07:34] VITALS: BP 115/92
--- NOTE | 2016-08-05 12:08 | NUR ---
PT ATTENDED ALL GROUPS THIS MORNING. SHE IS TAKING HER MEDS AND FRIENDLY WITH STAFF AND PEERS. SHE REMAINS HYPERVERBAL AND TANGENTIAL BUT ABLE TO BE REDIRECTED. WHEN ASKED SHE DENIED ANY THOUGHTS OF SUICIDE OR SELF AHRM
[2016-08-05 12:24] VITALS: BP 99/62
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
[2016-08-05 16:09] VITALS: BP 137/84
--- NOTE | 2016-08-05 16:19 | CP SOUTH PROGRESS NOTE PSYCH ---
Psych (Inpt) Progress Note Progress Note Include the following elements, when applicable: Involvement in the active treatment of the patient with behavioral observations of the patient and the patient's response to the treatment. Review of the ongoing treatment process in the context of the treatment plan. Indication of how multi-disciplinary staff members are carrying out the treatment plan. Plans for future interventions and recommendations for revision of the treatment plan. Liaison with other physicians/providers. Progress Note: PSYCHIATRIST NOTE, 08/05/2016: I discussed this patient's progress to date, current mental status, treatment and discharge planning with staff team today in the daily morning ITTM and also met with her again myself in individual session. I was surprized to find patient significantly more pressured, hyperverbal and tangential to almost loose in her expressed thinking, much more so than during our combined family/ BHcare liaison meeting just yesterday; possibly some of the things gone over in that meeting, particularly all that was expressed by her son Chandu were beginning to effect her more emotionally. Treatment with Depakote ER appears to be optimal at this point, but I question the efficacy of the Geodon despite dose being increased by 50% since admission and use of 20mg PRN doses; patient acknowledges being more anxious and PRN Geodon not effective in reducing this. Following further discussion and description of risks vs. benefits and common side effects of Seroquel, patient was willing to engage in a trial switchover from Geodon to that medication for better reduction in anxiety and less tendency to to overstimulating and even engender hypomanic surging; this change certainly appears to me to make more sense than attempting further upward dose titration of Geodon at this point. If introduction and upward titration of Seroquel does not provide adequate control over current turn towards hypomania, we could again consider reinitiation of a Winslow trial; though patient has reported sensitivity to Winslow in the past, symptoms recorded seem to be more likely associated with too rapid or too high titration of Winslow, or possibly to combination with other medications (particularly with regard to "drowsiness") and are not likely to occur with slow upward titration and a low to moderate goal serum concentration which might still be sufficient to positively impact/control hypomania. Thus far, patient is somewhat hesitant to engage in another trial on Winslow, but if currently observed symptomatology persists and becomes more disruptive to patient's (who has already noted herself being "too fast...thinking to fast") progress she may be more willing to consider the above.
[2016-08-05 20:08] VITALS: BP 124/55
--- NOTE | 2016-08-05 22:15 | NUR ---
PT IS VISIBLE ON UNIT, COLORING AND SOCIALIZING WITH PEERS. ATTENDED WRAP UP MEETING THIS EVENING. COOPERATIVE AND COMPLIANT WITH STAFF. AT TIMES PT CAN BE HYPERVERBAL AND TANGENTIAL BUT RESPONDS WELL TO REDIRECTION. NO COMPLAINTS OR SI REPORTED. PT HAS STABLE MOOD AND FULL RANGE AFFECT.
--- NOTE | 2016-08-06 05:33 | NUR ---
HYPOMANIC, HYPERVERBAL, BUT LESS PRESSURED AND MORE EASILY REDIRECTABLE.
[2016-08-06 08:15] VITALS: BP 111/71
--- NOTE | 2016-08-06 11:42 | SOCIAL WORKER PROG NOTE PSYCH ---
Social Work Progress Note Progress Note Called [facility] and left a message with Eliana (disease case manager rn) to see if she had any information about availability at [facility] in [place]. Dr. Orellana and I met with Kasie together. Kasie's speech is a little slower than yesterday. Remains talkative with some racing thoughts. Slept well and states medication is working well. She appears a little more sleepy. Kasie talked about feeling safer going to respite as an aftercare plan than returning home. Talked about having problems with hemmroids. Dr. Orellana looked up some information from this past year when Kasie came in for a colonoscopy and she it was noted that she had small internal hemmroids at the time. Kasie was encouraged to follow up with her primary care physician at [facility] in [place] when she discharges, in case something further needs to be done. I will schedule an appt. She was encouraged by Dr. Orellana to take Seroquel 25mg as a PRN throughout the day or night for racing thoughts and sleep. Called Florina Hyatt at [facility] and also asked for an update on the referral to [facility]. Florina didn't know any further information and said she will follow up with an email to staff. [place] back from [facility] about [facility], Samy will be out on Tuesday to interview September at 1pm. They are also putting Kasie on the [facility] housing list. Mom here visiting September this afternoon.
[2016-08-06 12:45] VITALS: BP 121/75
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
--- NOTE | 2016-08-06 14:07 | NUR ---
PT IS COMPLIANT AND COOPERATIVE. MOOD IS STABLE WITH A FULL RANGE OF AFFECT. PT DENIES SI AT THIS TIME, NO COMPLAINTS OFFERED. PT DENIES SI AT THIS TIME, NO COMPLAINTS OFFERED. PT REMAINS HYPERVERBAL WITH A LOOSE THOUGHT CONTENT- PT HAS BEEN EASIER TO REDIRECT. PT IS PRESENT ON THE UNIT AND INTERACTING WELL WITH PEERS AND STAFF. PT IS ATTENDING GROUPS. VITALS ARE STABLE, APPETITE IS GOOD.
--- NOTE | 2016-08-06 15:45 | SOCIAL WORKER PROG NOTE PSYCH ---
Social Work Progress Note Progress Note Completed referral for [place] respite. Please call back as she gets closer for discharge.
[2016-08-06 16:08] VITALS: BP 126/76
[2016-08-06 20:05] VITALS: BP 125/78
--- NOTE | 2016-08-06 21:49 | NUR ---
Pt is out in the community mood is stable affect is in full range hyperverbal. Pt is compliant and cooperative with the staff. No issues during the day. Vital signs are stable appetite is good. Will continue to monitor the pt overnight.
--- NOTE | 2016-08-07 06:39 | NUR ---
PATIENT SLEPT ALL NIGHT.
[2016-08-07 07:34] VITALS: BP 109/59
--- NOTE | 2016-08-07 09:53 | NUR ---
DR. BHAKTA AWARE OF ELECTROLYTES TRENDING DOWNWARDS, NO FURTHER ORDERS AT THIS TIME (HOWEVER PLAN IS FOR F/U LABS ON 08/08/16 & AWAITING ORDERS RE: THIS). PT IS PRESENT ON THE UNIT AND SOCIAL WITH PEERS AND STAFF, CALM, COOPERATIVE, RESPECTFUL AND PLEASANT, MOOD IS STABLE WITH FULL RANGE AFFECT, + APPETITE. INTERMITTENTLY TANGENTIAL AND HYPERVERBAL YET ABLE TO REDIRECT SELF AT TIMES, OVERALL STABLE.
[2016-08-07 12:14] VITALS: BP 110/69
--- NOTE | 2016-08-07 14:48 | CP SOUTH PROGRESS NOTE PSYCH ---
Psych (Inpt) Progress Note Progress Note Include the following elements, when applicable: Involvement in the active treatment of the patient with behavioral observations of the patient and the patient's response to the treatment. Review of the ongoing treatment process in the context of the treatment plan. Indication of how multi-disciplinary staff members are carrying out the treatment plan. Plans for future interventions and recommendations for revision of the treatment plan. Liaison with other physicians/providers. Progress Note: Pt notes that she slept "off and on." She notes that she is hearing voices but unsure if staff or peers or people that are not there. Thinks it is probably staff. Denies SI or HI. Feeling slightly better overall. Current Medications Sig/Saurabh Start time Last Medication Dose Route Stop Time Status Admin Acetaminophen 650 MG Q6P PRN 07/29 1745 AC PO Al Hydroxide/Mg 30 ML Q4-6 PRN PRN 07/29 1800 AC Hydroxide PO Albuterol Sulfate 2 PUF Q6P PRN 07/29 1745 AC INH Divalproex Sodium 750 MG 08/02 AC 08/06 PO 1944 Divalproex Sodium 500 MG DAILY@07/30 08 AC 08/07 PO 0926 Fluticasone 1 SPRAY 7:30 AM, & 4:30 PM 08/02 07 AC 08/07 Propionate KIRT 0927 Gabapentin 300 MG Q4P PRN 07/29 1800 AC PO Levothyroxine Sodium 0.088 MG DAILY AC 07/30 07 AC 08/07 PO 0650 Magnesium Hydroxide 30 ML AT BEDTIME PRN 07/29 1800 AC PO Mirabegron 25 MG 07/30 08 AC 08/07 PO 0926 Nicotine 14 MG DAILY 08/07 1415 AC 08/07 TOP 1424 Nicotine 7 MG 08/06 0800 DC 08/07 TOP 0927 Omeprazole 40 MG DAILY AC 07/31 07 AC 08/07 PO 0649 Polyethylene Glycol 17 GM DAILY 07/30 1000 AC 08/06 PO 0828 Propranolol HCl 10 MG BID 07/29 220 AC 08/07 PO 0927 Quetiapine Fumarate 50 MG 08/07 0800 AC 08/07 PO 0927 Quetiapine Fumarate 25 MG Q4P PRN 08/06 1130 AC PO Quetiapine Fumarate 100 MG 08/05 2200 AC 08/06 PO 2253 Vital Signs Date Time Temp Pulse Resp B/P B/P Pulse O2 O2 Flow FiO2 Mean Ox Delivery Rate 08/07 1214 62 110/69 08/07 0927 77 109/59 08/07 0734 98.2 77 10959 08/06 2252 797.5 76 20 125/78 08/06 2004 97.5 76 125/78 08/06 1608 73 126/76 MSE Appears as stated age. Cooperative behavior, good, appropriate eye contact. Nl speech rate and prosody, garbled slurred speech 2/2 loose dentures. No psychomotor retardation or agitation. Mood fine Affect euthymic, irritable, depressed, constricted, appropriate, non-liable. Linear and goal directed thought process. Denies SI or HI. Does not appear to be responding to internal stimuli. Denies AVHs though ??AHs at night, paranoia, or delusions. I/J: limited A/P: Pt with bipolar disorder now with continued psychotic sx though improved. - Increase nicotine patch to 14mg given nicotine cravings - Otherwise continue current medication regimen
[2016-08-07 15:54] VITALS: BP 103/67
--- NOTE | 2016-08-07 18:50 | NUR ---
PT HAS BEEN COMPLIANT AND COOPRATIVE WITH UNIT RULES. PT HAS BEEN OUT IN THE COMMUNITY INTERACTING WELL WITH STAFF AND PEERS. PT MOOD IS STABLE WITH A FULL RANGE AFFECT. PT COMMUNCATION IS CLEAR. PT DENIES SI THOUGHTS.
[2016-08-07 20:05] VITALS: BP 135/81
--- NOTE | 2016-08-08 05:20 | NUR ---
PATIENT AWAKE X1 AFTER INCONTINENT EPISODE IN MIDDLE OF NIGHT, OTHERWISE APPEARED TO SLEEP.
[2016-08-08 07:58] VITALS: BP 107/69
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
[2016-08-08 12:27] VITALS: BP 121/79
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
[2016-08-08 15:27] VITALS: BP 126/72
[2016-08-08 20:10] VITALS: BP 127/72
--- NOTE | 2016-08-08 22:34 | NUR ---
Pt is present on the unit and is pleasant, calm, cooperative and complaint with treatment and medications, no issues or complaints reported or observed, VSS, mood stable with full range/bright affect, social with peers and staff & is appropriate, can still be tangential and hyperverbal at times but easily redirectable.
--- NOTE | 2016-08-09 06:22 | NUR ---
PATIENT SLEPT ALL NIGHT.
[2016-08-09 08:09] VITALS: BP 104/63
[2016-08-09 12:53] VITALS: BP 99/59
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
[2016-08-09 16:13] VITALS: BP 121/68
[2016-08-09 19:53] VITALS: BP 126/69
--- NOTE | 2016-08-09 20:35 | CP SOUTH PROGRESS NOTE PSYCH ---
Psych (Inpt) Progress Note Progress Note Include the following elements, when applicable: Involvement in the active treatment of the patient with behavioral observations of the patient and the patient's response to the treatment. Review of the ongoing treatment process in the context of the treatment plan. Indication of how multi-disciplinary staff members are carrying out the treatment plan. Plans for future interventions and recommendations for revision of the treatment plan. Liaison with other physicians/providers. Progress Note: PSYCHIATRIST NOTE, 08/09/2016: I discussed this patient's slow progress to date, current mental status, treatment and discharge planning with staff team today in the daily morning ITTM and also met with her again myself in individual session. Patient had had an on -unit interview with staff of the [facility] residential program in [facility], and this seems to have gone well; however, it is not clear exactly when there will be an opening; she may need to "bridge" between [facility] and [facility] at a [facility] facility. Patient seems less pressured and loose to me today; her mood is close to euthymia and anxiety low; she looked and reported being a bit fatigued during the day today; she agreed to my halving current dose of Seroquel at 8am to 25mg; she will continue to have PRN Seroquel (25mg) available. Valproic acid level this morning was 86.8mcg/ml with no side effects at a dose of 1,250mg/day which seems optimal.
--- NOTE | 2016-08-09 21:44 | NUR ---
Pt is out in the community mood is stabel constricted affect. No issues noted during the day, Compliant and cooperative with the staff. Vital signs are stable appetite is good. Will continue to monitor the pt overnight.
--- NOTE | 2016-08-10 06:00 | NUR ---
PATIENT SLEPT ALL NIGHT.
[2016-08-10 08:08] VITALS: BP 81/53
--- NOTE | 2016-08-10 09:38 | NUR ---
THIS MHW WAS ASKED TO RECHECK VITALS BY RNS, AND GOT 95/53, PULSE 73
[2016-08-10 09:39] VITALS: BP 95/53
--- NOTE | 2016-08-10 11:49 | SOCIAL WORKER PROG NOTE PSYCH ---
Social Work Progress Note Progress Note Called Alex at [facility] and did a phone screening for September. Alex would like to meet September on the unit. He will let me know if he is available to see her tomorrow. He is not anticipating an opening this week, but things can change. Called [facility] and [facility] to do the phone screening. Eleonora Wilkins told me she would need to call back.
--- NOTE | 2016-08-10 11:49 | SOCIAL WORKER PROG NOTE PSYCH ---
Social Work Progress Note Progress Note Social work met with pt 1:1. Pt initially presented a little more organized and was talking about how she has been feeling better and finds the medication and therapy helpful.Pt identified that she enjoys group and also 1:1 as it makes her feel less depressed. Pt also identified that the meeting with Eliana from [facility] was helpful. Pt's affect was flat and eye contact was poor as she stares at the wall as she speaks. As pt continued to speak she became more disorganized and hyperverbal. It was difficult to follow who and what pt was talking about as she jumped from topic to topic including her childhood, her high school years, friendships, trauma, abuse, substance abuse and legal issues. This social contact worker suggested that pt keep a journal to write down her thoughts.
[2016-08-10 12:25] VITALS: BP 103/59
--- NOTE | 2016-08-10 13:38 | NUR ---
PT IS COMPLIANT AND COOPERATIVE. MOOD IS STABLE WITH A CONSTRICTED AFFECT. PT DENIES SI AT THIS TIME, NO COMPLAINTS OFFERED. PT SPEECH HAS BEEN ORGANIZED AND APPROPRIATE. PT IS PRESENT IN THE COMMUNITY AND INTERACTING WELL WITH PEERS AND STAFF. PT IS ATTENDING GROUPS. VITALS ARE STABLE, APPETITE IS GOOD.
--- NOTE | 2016-08-10 15:09 | CP SOUTH PROGRESS NOTE PSYCH ---
Psych (Inpt) Progress Note Progress Note Include the following elements, when applicable: Involvement in the active treatment of the patient with behavioral observations of the patient and the patient's response to the treatment. Review of the ongoing treatment process in the context of the treatment plan. Indication of how multi-disciplinary staff members are carrying out the treatment plan. Plans for future interventions and recommendations for revision of the treatment plan. Liaison with other physicians/providers. Progress Note: PSYCHIATRIST NOTE, 08/10/2016: I discussed this patient's progress to date, current mental status, treatment and discharge planning with staff team today in the daily morning ITTM. She has been reported still looking fatigued/drowsy earlier in the day despite sleeping fairly well; I plan to eliminate the AM dose of Seroquel, 25mg and move HS dose of Seroquel (100mg) from HS to 8pm, starting this evening. I also encouraged her to utilize the low dose PRN Seroquel for racing thoughts, day or night; patient told me spontaneously today that she feels the Seroquel is already being of greater benefit to her than the Geodon, helping her with anxiety, clarity of thinking and ability to focus. Telma Medrano LCSW, is making referrals to both [facility], in [place] and [place], in case admission to the [facility] program of [facility] in [place], [place] is not possible this week. Patient was notably less pressured and loose today, stuck more to the point and was able to speak for quite a while on subject of her going to the [facility] facility and possible interim temporary placement; under no circumstances does she wish to return to stay with her parents (mother and stepfather, Abdoul) at this time.
[2016-08-10 16:35] VITALS: BP 123/72
[2016-08-10 20:26] VITALS: BP 118/67
--- NOTE | 2016-08-10 21:25 | NUR ---
PT IS CLAM, COOEPRATIVE WITH STAFF [facility] PEERS, AND COMPLIANT WITH UNIT RULES. PT IS OFTEN IN [place], INTERACTING WELL WITH OTHERS. MOOD IS STABLE, AFFECT IS BRIGHT TO FULL RANGE, COMMUNICATION IS DISORGANIZED, HYPERVERBAL, AND TANGENTIAL, AND APPETITE IS NORMAL. PT DENIES SI AT THIS TIME.
[2016-08-11 07:42] VITALS: BP 90/58
[2016-08-11 12:22] VITALS: BP 116/74
--- NOTE | 2016-08-11 12:50 | NUR ---
PT IS PRESENT WITHIN THE COMMUNITY AND SOCIAL WITH PEERS AND STAFF, MOOD STABLE WITH FULL RANGE/BRIGHT AFFECT, IS OVERALL CALM, COOPERATIVE, RESPECTFUL AND APPROPRIATE. IT ATTENDING GROUPS AND REPORTED IN PLANNING MEETING + SLEEP/BETTER MOOD AND WANTS TO CONTINUE TO GO TO GROUPS, NO ISSUES OR COMPLIANTS REPORTED OR OBSERVED.
--- NOTE | 2016-08-11 13:59 | CP SOUTH PROGRESS NOTE PSYCH ---
Psych (Inpt) Progress Note Progress Note Include the following elements, when applicable: Involvement in the active treatment of the patient with behavioral observations of the patient and the patient's response to the treatment. Review of the ongoing treatment process in the context of the treatment plan. Indication of how multi-disciplinary staff members are carrying out the treatment plan. Plans for future interventions and recommendations for revision of the treatment plan. Liaison with other physicians/providers. Progress Note: PSYCHIATRIST NOTE, 08/11/2016: I discussed this patient's slow progress to date, current mental status, treatment and discharge planning with staff team today in the daily morning AFTAB and Telma Medrano LCSW, and I also met with her together in individual session. Patient is no longer pressured and less tangential than she had been though she does start to ramble and become somewhat loose as she fatigues in conversation. We went over once again the aftercare arrangements which patient has already endorsed. Patient continues to be positive about making the transition to [facility] in [facility], and to possibly transferring her outpatient psychiatric care to the [facility]. Patient has spoken with her mother about this and told us mother said to her "you should do what is best for you." Patient reports that the current dose of Seroquel (100mg HS) is helping her "more than the Geodon...it made me feel funny..." Patient's blood pressure has been running low at times; I plan to hold the low dose Inderal for now.
--- NOTE | 2016-08-11 14:26 | SOCIAL WORKER PROG NOTE PSYCH ---
See Addendum Social Work Progress Note Progress Note Called [facility] today to complete the phone screening for referral. I was not able to speak with a house manager and was told they would get back to me. Spoke with Eliana at [facility] and let her know that Kasie really should be discharged this week. She mentioned that Aurea Chiu left her a message indicating that the room at [facility] would really not be ready until Tuesday or Tuesday. I called Aurea myself and left a message to see if anything could be done to accomodate Kasie earlier, as we really didn't want to have to discharge her back to her Mom's and so far Crisis and Res[facility] with [facility] hasn' t worked out. Dr. Orellana and I met with Kasie together. We asked if Kasie was getting any pressure from family not to proceed with her plan? She said no and stated her Mom had told her it was her choice. I told her that her Mom has been calling and leaving messages about wanting to know what was happening. I informed Kasie that we are still working on getting her discharge plan together. She still wants to go to respite, although she seems to view this as a temporary situation. We told her she may want to consider finding another independent living situation from family after [facility]. Asked if she has talked with her son? She said not since the meeting. She was encouraged to give him a call. She looked less sedated today and feels her meds are currently in a good place.
[2016-08-11 15:56] VITALS: BP 119/75
[2016-08-11 20:04] VITALS: BP 129/60
--- NOTE | 2016-08-11 22:01 | NUR ---
PT IS VISIBLE ON UNIT, SOCIAL WITH PEERS AND VISITING WITH FAMILY IN [place]. VERY PLEASANT AND COOPERATIVE. ATTENDED WRAP UP MEETING. NO COMPLAINTS OR SI REPORTED. PT HAS A STABLE MOOD AND FULL RANGE AFFECT.
[2016-08-12 07:58] VITALS: BP 103/67
[2016-08-12 12:19] VITALS: BP 121/69
[2016-08-12] MEDS ORDERED: NICOTINE PATCH1 EAC2 TOP (13:17)
[2016-08-12] MEDS ORDERED: DEPAKOTE ER250 M1 PO (13:19)
[2016-08-12] MEDS ORDERED: QUETIAPINE FUM100 M1 PO (13:20)
[2016-08-12] MEDS ORDERED: DIVALPROEX SOD500 M2 PO (13:22)
--- NOTE | 2016-08-12 13:41 | NUR ---
PT IS PRESENT WITHIN THE COMMUNITY, CALM, RESPECTFUL, COOPERATIVE AND COMPLIANT WITH MEDICATIONS AND TREATMENT, NO ISSUES OR COMPLAINTS REPORTED OR OBSERVED. W-10 REVIEWED AND NO QUESTIONS OR CONCERNS OFFERED, AWAITING TO MEET WITH DR. KEYS RE: SCHEDULED DISCHARGE FOR TODAY. MOOD STABLE WITH FULL RANGE AFFECT, WHEN ASKED DIRECTLY DENIES SI/HI/HALLUCINATIONS & INFORMATION PACKETS RE: BIPOLAR AND SI GIVEN TO PT. PT RESOURCE GUIDE REVIEWED.
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
== END 2016-08-12 15:00 | DRG 885 ==
LOC: ERH 11:17 → CP SOUTH 17:37 → ERHI 17:37 → EDBEDREQ 17:48 → CP SOUTH 21:31
PROVIDERS: Physician Assistant Medical; ADMIT Psychiatry & Neurology Addiction Medicine
DX: F31.5 Bipolar disorder, current episode depressed, severe, with psychotic features (principal); E03.9 Hypothyroidism, unspecified; K21.9 Gastro-esophageal reflux disease without esophagitis; N39.498 Other specified urinary incontinence
CPT/HCPCS: 36415; 80307; 81003; 81025; 82436; 87086; 93005; 93010; G0480; J3490

== ENCOUNTER 2016-10-26 14:13 | Emergency (ER) | payer OTHER, MEDICARE ==
[~2016-10-26] VITALS: Ht 167.6 cm; Wt 78.9 kg
[~2016-10-26 14:13] MED LIST changes: +DIVALPROEX SOD500 M2 PO; +NICOTINE PATCH1 EAC2 TOP; +PROAIR HFA8.5 GM INH; +QUETIAPINE FUM100 M1 PO
[2016-10-26 14:22] VITALS: BP 130/85
[2016-10-26 15:27] LABS: ABSOLUTE BASOPHIL COUNT 0 /CUMM (0.0-0.2); ABSOLUTE EOSINOPHIL COUNT 0.1 /CUMM (0.0-0.7); ABSOLUTE GRANULOCYTE CT 1.6 /CUMM (1.4-6.5); ABSOLUTE LYMPH COUNT 1.5 /CUMM (1.2-3.4); ABSOLUTE MONOCYTE COUNT 0.6 /CUMM (0.10-0.60); BASOPHIL % 0.5 % (0.0-2.0); EOSINOPHIL % 2.1 % (0-5); GRANULOCYTE % 42.2 % (42.2-75.2); HEMATOCRIT 38.2 % (37-47); MEAN CORPUSCULAR VOLUME 94.3 FL (81.0-99.0); MEAN PLATELET VOLUME 8.9 FL (7.4-10.4); PLATELET COUNT 178 /CUMM (130-400); RBC DISTRIBUTION WIDTH 13.2 % (11.5-14.5); RED BLOOD CELL CT 4.05 /CUMM (4.20-5.40); WHITE BLOOD CELL COUNT 3.8 /CUMM (4.8-10.8)
== END 2016-10-26 15:55 | disposition admitted as inpatient to this hospital (09) ==
LOC: ERH 14:13
PROVIDERS: Emergency Medicine
DX: R79.0 Abnormal level of blood mineral (principal)
CPT/HCPCS: 99281

== ENCOUNTER 2017-04-21 10:09 | Emergency (ER) | payer OTHER, MEDICARE ==
[~2017-04-21 10:09] MED LIST changes: +ADVAIR 250-501 EACH INH; +DICLOFENAC SODI75 M2 PO; +POLYETHYLENE G255 GM PO
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
[2017-04-21] MEDS ORDERED: QUETIAPINE FUMA50 M1 PO (10:54)
--- NOTE | 2017-04-21 11:56 | RADIOLOGY REPORT ---
EXAMINATION: XR ANKLE, LEFT CLINICAL INFORMATION: Pain after injury COMPARISON: 03/07/2017 TECHNIQUE: AP, lateral, and mortise views of the left ankle. FINDINGS: Moderate diffuse soft tissue swelling is seen, less severe than previous examination. The ankle mortise is symmetric. No acute fracture or dislocation is identified. Focal ossific density at the medial malleolus presumably reflect prior trauma. IMPRESSION: Diffuse soft tissue swelling. Normal alignment. No acute fracture or dislocation is seen.
[2017-04-21 12:12] VITALS: BP 120/74
--- NOTE | 2017-04-21 12:44 | ULTRASOUND REPORT ---
EXAMINATION: US TRIPLEX LOWER EXTREMITY, LEFT CLINICAL INFORMATION: Left lower extremity pain and swelling. COMPARISON: Venous ultrasound dated 03/07/2017. TECHNIQUE: Color-flow triplex imaging with spectral analysis and compression Doppler were performed on the left lower extremity. FINDINGS: Respiratory variation, normal compression and augmented flow are noted throughout the lower extremity. The visualized common femoral vein, proximal greater saphenous vein, femoral vein, profunda femoral vein, popliteal vein and midcalf peroneal and posterior tibial venous segments show no evidence of deep venous thrombosis. There is no Rodgers's cyst. IMPRESSION: Normal triplex scan without evidence of deep venous thrombosis involving the left lower extremity.
[2017-04-21] MEDS ORDERED: DOXYCYCLINE HY100 M2 PO (13:01)
== END 2017-04-21 13:11 ==
LOC: ERH 10:09
DX: S93.402A Sprain of unspecified ligament of left ankle, initial encounter (principal); L03.116 Cellulitis of left lower limb; X58.XXXA Exposure to other specified factors, initial encounter; Y92.9 Unspecified place or not applicable; Y93.9 Activity, unspecified
CPT/HCPCS: 73610-LT